=== PATIENT | female | born 1930 | race Caucasian/White ===

== ENCOUNTER 2017-03-23 16:17 | Inpatient (IN) | payer MEDICARE, BC ==
--- NOTE | ~2017-03-23 | DS ---
Discharge Summary [address] [id number] [facility] [place]. [address] NAME: KEZIA NEWELL : 32 STATUS : DIS IN PAT#: [id number] AGE: 87 ADM/REG DATE : 03/23/17 MR#: [id number] REPORT SERV DATE: 03/28/17 DICTATED BY: CIERRA MARTE DATE: 03/27/17 REPORT STATUS : Draft TRANSCRIBED BY: MODL DATE: 03/27/17 ADMISSION DATE: 03/23/2017 DISCHARGE DATE: 03/27/2017 PRINCIPAL DIAGNOSIS: Dementia with acute encephalopathy due to urinary tract infection. SECONDARY DIAGNOSES: 1. Acute kidney injury. 2. Hypovolemia. 3. Seizure disorder. 4. Generalized weakness. 5. Atrial fibrillation. HISTORY OF PRESENT ILLNESS: Please see Dr. Vilchis's dictation on 03/23/2017. HOSPITAL COURSE: Admitted with altered mental status in the setting of advanced dementia with increasing weakness and difficulty managing affairs at home. The patient was found to have urinary tract infection positive for E. coli. The patient had good results with antibiotics, which were changed to p.o. Mental status returned to baseline which was poor, she remained confused. Also, did not pass physical therapy and was transferred to [facility] facility on 03/27/2017. She will follow up with Dr. Fabiola Ho following SNF discharge. PT/OT per facility, on following medications: Prinivil 10 per day, Eliquis 2.5 b.i.d., Keppra 500 b.i.d., Cardizem CD 240 per day, Duricef for 2 more days, Exelon 4.6 daily, Synthroid 50 daily, Namenda 10 b.i.d., Lovenox for DVT prophylaxis. Greater than 30 minutes were spent in the care of this patient on discharge day. DICTATED BY: Todd Jones/EUGENIA Cierra Marte M.D. / [id number] CC: Todd Fountain DO
--- NOTE | ~2017-03-23 | HP ---
History And Physical [facility] [address] [place]. [address] NAME: KEZIA NEWELL : 32 STATUS : ADM IN [facility]#: [id number] AGE: 86 ADM/REG DATE : 03/23/17 MR#: [id number] REPORT SERV DATE: 03/23/17 DICTATED BY: KATHIE MARTIN DATE: 03/23/17 REPORT STATUS : Draft TRANSCRIBED BY: MODL DATE: 03/23/17 DATE OF ADMISSION: 03/23/2017 HISTORY OF PRESENT ILLNESS: This is a very pleasant 86-year-old female, who was brought by daughter to [facility] because of altered mental status and lethargy which was going on for several days. The patient's daughter reported that the patient was not eating, not even able to swallow her medications. She was chewing her diltiazem, so the patient was not given her medications because of this reason. As well as she had a bowel incontinence episode where she could not tell that she wants to have a bowel movement. She has advanced dementia and she became more lethargic than usually. She was found to have urinary tract infection in the emergency room, as well as she had a history of urinary infections in the past. She had two episodes recently of UTIs. She saw Dr. Fabiola Ho, and she basically takes care of her as a primary care provider. Her dementia is worsening according to the patient's daughter. The patient is lethargic, but she is able to open and close her eyes. She can barely follow commands like she can squeeze my hand. Daughter said that she used to walk with assistance, but now she is unable even to walk. PAST MEDICAL HISTORY: Her past medical history was collected from patient's daughter because the patient is unable to provide any history. She has a history of hypertension, hypothyroidism, and questionable history of arrhythmia. The patient's daughter reported that she is on Cardizem, but it is unclear why she takes it. Even Dr. Fabiola Ho, her primary care provider did not know why she is on Cardizem. She said she was seen by police patrol lieutenant one time and she was on this medication, but she is not taking this medication for the last 10 days, and heart rate is in the normal range. She was not taking Cardizem because she was unable to swallow pills. She was chewing the capsules that is why it was not given to her. The patient's daughter denies any history of heart attacks. No strokes. She said that the patient had seizures in November this year and afterwards, she had seven episodes of seizures. At that time, she was hospitalized at [facility] and at that time, they did not find any reason why the patient had seizures. She was placed on Keppra and for the last two months she did not have any seizures. As well as the patient's daughter reported that the patient had shingles, maybe like two months ago, and she was scratching it badly on her chest and on her shoulder, and now it has resolved. She does not have any active infection. Also, the patient's daughter reported that for seizures, she had a full workup at [facility] including CT scan of the head. Patient's daughter also reported that the patient has chronic kidney disease, followed by Dr. Story, and it was stage 2 to 3. PAST SURGICAL HISTORY: Includes cholecystectomy. SOCIAL HISTORY: She never smoked before. No alcohol. No recreational drug use. She now stays with her daughter. FAMILY HISTORY: Patient's father and mother when she was young, so they do not know what medical problems they had. History And Physical [address] [address] NAME: KEZIA NEWELL : 32 STATUS : ADM IN [facility]#: [id number] AGE: 86 ADM/REG DATE : 03/23/17 MR#: [id number] REPORT SERV DATE: 03/23/17 DICTATED BY: KATHIE MARTIN DATE: 03/23/17 REPORT STATUS : Draft TRANSCRIBED BY: EUGENIA DATE: 03/23/17 ALLERGIES: THE PATIENT IS INTOLERANT OF ALOE. SHE HAS ALLERGY TO ALOE. THERE ARE NO KNOWN DRUG ALLERGIES. HOME MEDICATIONS: Include: Diltiazem ER 240 mg daily, but the patient is not on it for the last 10 days. Because she was chewing medications instead of swallowing, it was discontinued. Keppra 500 mg p.o. b.i.d., levothyroxine 50 mcg daily, lisinopril 5 mg daily, Namenda 10 mg p.o. b.i.d., Exelon patch 4.6 mg p.o. daily. REVIEW OF SYSTEMS: I am unable to perform review of systems because patient is in altered mental status, unable to answer any questions. PHYSICAL EXAMINATION: GENERAL: Well-nourished and well-developed female, not in acute distress. Resting quietly. VITAL SIGNS: Her blood pressure is 138/96, temperature 98.3, heart rate 72, respiratory rate 22, oxygen saturation 93% on room air. HEENT: Head atraumatic, normocephalic. Conjunctivae clear. Pupils are equal and reactive to light and accommodation. Extraocular muscles are intact. NECK: Supple. Trachea is midline. LYMPH: No supraclavicular or cervical lymphadenopathy. LUNGS: Diminished breath sounds bilaterally. Decreased respiratory effort. CARDIOVASCULAR SYSTEM: Regular rate and rhythm. Point of maximal impulse not displaced. ABDOMEN: Soft, nontender, nondistended. Positive normoactive bowel sounds. EXTREMITIES: No clubbing, cyanosis, or edema. SKIN: Normal color. Slightly decreased turgor. NEUROLOGICAL: She is keeping her eyes closed, but she is able to open her eyes. When you talk to her, she looks at you. She can even squeeze my hand, but then closes her eyes again and then opening periodically moving her eyelids. She can follow simple commands, but she has difficulty to understand, for example when you tell her to squeeze your hand, she tries to squeeze but she does not understand. When she is able to do it, her muscle strength is 4/5 bilaterally on upper and lower extremities. LABORATORY RESULTS: Sodium 142, potassium 4, chloride 106, carbon dioxide 31, BUN 20, creatinine 1.24, blood sugar is 91. White count 10.3, hemoglobin 12.3, hematocrit 37, platelet count 364. UA showed cloudy urine with a large amount of leukocyte esterase, more than 182 white cells, with white cells clumps, and bacteria. Chest x-ray showed mild cardiomegaly, otherwise clear lungs. ASSESSMENT AND PLAN: This is an 86-year-old female with a past medical history of advanced dementia, history of frequent UTIs, history of recent onset of seizures in November. No seizures for the last two months. History of chronic kidney disease, stage 2 to 3. Presented with: 1. Decreased level of consciousness. 2. Significant urinary tract infection. 3. Mild acute kidney injury on chronic kidney disease with dehydration. 4. Advanced dementia to the point that she has difficulty to recognize family members, and History And Physical [address] [place]. [address] NAME: KEZIA NEWELL : 32 STATUS : ADM IN PAT#: [id number] AGE: 86 ADM/REG DATE : 03/23/17 MR#: [id number] REPORT SERV DATE: 03/23/17 DICTATED BY: KATHIE MARTIN DATE: 03/23/17 REPORT STATUS : Draft TRANSCRIBED BY: MODL DATE: 03/23/17 some episodes of bowel movement without notification. We will admit the patient to medical-surgical telemetry bed. We will monitor her closely. For her dehydration, since she is unable to eat anything by mouth, we will start her on IV fluid hydration. As well as for urinary tract infection, after urinary cultures are obtained, we will start her on intravenous Rocephin. For her acute kidney injury. IV fluids will be given and we will check her creatinine tomorrow. We will do an EKG and we will check serial troponins. Regarding her oral medications, we will hold oral medications until she will be able to take by mouth. I will hold her diltiazem since she is not taking for the last 10 days and her heart rate is 72. There is a possibility that diltiazem may be discontinued if heart rate will stay in a stable rhythm. Also, we will check her EKG. Regarding her Keppra that she takes for seizures, we will give her Keppra intravenously. Once she will be able to take by mouth, it can be switched through her mouth. She has had history of seizures, but she does not have seizures anymore. Decreased level of consciousness. We will monitor patient's decreased level of consciousness. With treatment of UTI, we expect her mentation and level of consciousness will improve. If is she will stay lethargic after even UTI treatment, then she may need to have a CT of the head and other investigations for the reasons of decreased level of consciousness. The patient is febrile and we will monitor her for fever also. Code status. The patient's code status was discussed with patient's daughter, and she does not want her to have CPR. She does not want intubation. She is okay with IV fluids, antibiotics and oxygen masks, so she will be limited additional interventions and these are patient's preferences according to the daughter. My partner will see this patient starting tomorrow morning. MG/MODL Kathie Martin M.D. / [id number] CC: Todd Michael DO
[2017-03-23 14:44] LABS: BASOPHILS 0.4 %; BASOPHILS ABSOLUTE 0.04 10/3/uL (0.0-0.16); EOSINOPHILS 4.9 %; ER CBC TAT 0 Hrs 03 Mins; HEMOGLOBIN 12.3 g/dL (12.0-16.0); IMMATURE GRANULOCYTES 0.7 %; IMMATURE GRANULOCYTES ABSOLUTE 0.07 10/3/uL (0.0-0.11); LYMPHOCYTES 34.7 %; LYMPHOCYTES ABSOLUTE 3.56 10/3/uL (0.67-4.30); MEAN CORPUS HGB CONC 33.2 g/dL (32.0-36.0); MEAN CORPUSCULAR HEMOGLOB 30.1 pg (26.0-34.0); MEAN PLATELET VOLUME 8.7 fL (9.2-13.0); MONOCYTES 8.9 %; MONOCYTES ABSOLUTE 0.91 10/3/uL (0.21-1.20); NEUTROPHILS 50.4 %; NEUTROPHILS ABSOLUTE 5.19 10/3/uL (2.02-8.40); RBC DISTRIBUTION WIDTH 13.4 % (12.0-16.0); RED CELL COUNT 4.08 10/6/uL (4.0-5.6); WHITE BLOOD CELLS 10.3 10/3/uL (4.5-10.5)
[2017-03-23 14:45] LABS: MANUAL DIFF NO %; MEAN CORPUSCULAR VOLUME 90.7 fL (80-100); PLATELET COUNT 364 10/3/uL (150-400)
[2017-03-23 14:53] LABS: ASCORBIC ACID (UR NOT ORDER) 20 (NEG); BILIRUBIN, URINE NEGATIVE (NEG); ER URINALYSIS TAT 0 Hrs 12 Mins; KETONE, URINE NEGATIVE (NEG); LEUKOCYTE ESTERASE(NOT OR LARGE (NEG); NITRITE (URINE) NEG (NEG); WBC (NOT ORDERED) (RFLEX) > 182 (0-5)
[2017-03-23 15:03] LABS: A/G RATIO 0.8 (0.7-1.9); ALBUMIN 3.1 G/DL (3.5-5.0); ALKALINE PHOSPHATASE 156 U/L (45-117); CALCIUM, SERUM 8.7 MG/DL (8.5-10.4); CHLORIDE, SERUM 106 MMOL/L (96-112); CREATININE 1.24 MG/DL (0.55-1.02); GFR AFRICAN AMERICAN 46 ML/MIN (>=60); GFR NON AFRICAN AMERICAN 40 ML/MIN (>=60); GLOBULIN 3.8 G/DL (2.5-4.1); GLUCOSE, SERUM 91 MG/DL (60-99); SGOT(AST) 20 U/L (5-40); SGPT(ALT) 21 U/L (5-65); TOTAL BILIRUBIN 0.4 MG/DL (0-1.2); TOTAL PROTEIN 6.9 G/DL (6.0-8.5)
[2017-03-23 15:04] LABS: BUN (BLOOD UREA NITROGEN) 20 MG/DL (6-23); CO2 (CARBON DIOXIDE) 31 MMOL/L (24-34); SODIUM, SERUM 142 MMOL/L (135-148)
[~2017-03-23 16:17] MED LIST: CARTIA XT240 MG/24 PO; DIOVAN320 MG PO; EXELON4.6T TOP; KEPPRA500 PO; LEVOTHYROXIN25 MCG PO; LEVOTHYROXIN50 MCG PO; NAMENDA10 MG PO; ZESTRIL5 MG PO
[2017-03-23 19:22] LABS: TROPONIN I <0.02 NG/ML (<0.05)
[2017-03-23 19:24] LABS: FOLATE 45.8 NG/ML (>5.2)
[2017-03-24 02:00] LABS: BASOPHILS 0.4 %; BASOPHILS ABSOLUTE 0.04 10/3/uL (0.0-0.16); EOSINOPHILS 5.6 %; EOSINOPHILS ABSOLUTE 0.63 10/3/uL (0.0-0.53); HEMATOCRIT 38.1 % (36.0-48.0); HEMOGLOBIN 12.7 g/dL (12.0-16.0); IMMATURE GRANULOCYTES 0.8 %; IMMATURE GRANULOCYTES ABSOLUTE 0.09 10/3/uL (0.0-0.11); LYMPHOCYTES 35.4 %; LYMPHOCYTES ABSOLUTE 3.95 10/3/uL (0.67-4.30); MEAN CORPUS HGB CONC 33.3 g/dL (32.0-36.0); MEAN CORPUSCULAR HEMOGLOB 30.2 pg (26.0-34.0); MEAN CORPUSCULAR VOLUME 90.5 fL (80-100); MEAN PLATELET VOLUME 8.7 fL (9.2-13.0); MONOCYTES 10.8 %; MONOCYTES ABSOLUTE 1.21 10/3/uL (0.21-1.20); NEUTROPHILS ABSOLUTE 5.24 10/3/uL (2.02-8.40); PLATELET COUNT 393 10/3/uL (150-400); RBC DISTRIBUTION WIDTH 12.9 % (12.0-16.0); RED CELL COUNT 4.21 10/6/uL (4.0-5.6); WHITE BLOOD CELLS 11.2 10/3/uL (4.5-10.5)
[2017-03-24 02:04] LABS: MANUAL DIFF NO %
[2017-03-24 02:05] LABS: BUN (BLOOD UREA NITROGEN) 18 MG/DL (6-23); CALCIUM, SERUM 8.8 MG/DL (8.5-10.4); CHLORIDE, SERUM 106 MMOL/L (96-112); CREATININE 1.06 MG/DL (0.55-1.02); GFR AFRICAN AMERICAN 55 ML/MIN (>=60); GFR NON AFRICAN AMERICAN 48 ML/MIN (>=60); GLUCOSE, SERUM 100 MG/DL (60-99); POTASSIUM, SERUM 4.1 MMOL/L (3.5-5.3); SODIUM, SERUM 142 MMOL/L (135-148); TROPONIN I <0.02 NG/ML (<0.05)
[2017-03-24 02:06] LABS: CO2 (CARBON DIOXIDE) 26 MMOL/L (24-34)
[2017-03-25 06:52] LABS: BASOPHILS 0.4 %; BASOPHILS ABSOLUTE 0.05 10/3/uL (0.0-0.16); EOSINOPHILS 3.9 %; EOSINOPHILS ABSOLUTE 0.52 10/3/uL (0.0-0.53); HEMATOCRIT 39.5 % (36.0-48.0); HEMOGLOBIN 13.1 g/dL (12.0-16.0); IMMATURE GRANULOCYTES 0.7 %; IMMATURE GRANULOCYTES ABSOLUTE 0.09 10/3/uL (0.0-0.11); LYMPHOCYTES 29.8 %; LYMPHOCYTES ABSOLUTE 3.93 10/3/uL (0.67-4.30); MANUAL DIFF NO %; MEAN CORPUS HGB CONC 33.2 g/dL (32.0-36.0); MEAN CORPUSCULAR VOLUME 90.6 fL (80-100); MEAN PLATELET VOLUME 9.1 fL (9.2-13.0); MONOCYTES 8.4 %; MONOCYTES ABSOLUTE 1.11 10/3/uL (0.21-1.20); NEUTROPHILS 56.8 %; NEUTROPHILS ABSOLUTE 7.48 10/3/uL (2.02-8.40); PLATELET COUNT 393 10/3/uL (150-400); RBC DISTRIBUTION WIDTH 12.8 % (12.0-16.0); RED CELL COUNT 4.36 10/6/uL (4.0-5.6); WHITE BLOOD CELLS 13.2 10/3/uL (4.5-10.5)
[2017-03-25 07:05] LABS: BUN (BLOOD UREA NITROGEN) 19 MG/DL (6-23); CALCIUM, SERUM 8.7 MG/DL (8.5-10.4); CHLORIDE, SERUM 108 MMOL/L (96-112); CO2 (CARBON DIOXIDE) 28 MMOL/L (24-34); CREATININE 1.09 MG/DL (0.55-1.02); GFR AFRICAN AMERICAN 54 ML/MIN (>=60); GFR NON AFRICAN AMERICAN 46 ML/MIN (>=60); GLUCOSE, SERUM 108 MG/DL (60-99); POTASSIUM, SERUM 4.3 MMOL/L (3.5-5.3); SODIUM, SERUM 141 MMOL/L (135-148)
[2017-03-26 06:33] LABS: BASOPHILS 0.2 %; BASOPHILS ABSOLUTE 0.03 10/3/uL (0.0-0.16); EOSINOPHILS 4.9 %; EOSINOPHILS ABSOLUTE 0.63 10/3/uL (0.0-0.53); HEMOGLOBIN 11.3 g/dL (12.0-16.0); IMMATURE GRANULOCYTES 0.6 %; IMMATURE GRANULOCYTES ABSOLUTE 0.08 10/3/uL (0.0-0.11); LYMPHOCYTES 30.5 %; MEAN CORPUS HGB CONC 33.5 g/dL (32.0-36.0); MEAN CORPUSCULAR HEMOGLOB 30.5 pg (26.0-34.0); MEAN CORPUSCULAR VOLUME 91.1 fL (80-100); MEAN PLATELET VOLUME 9.2 fL (9.2-13.0); MONOCYTES 9.5 %; MONOCYTES ABSOLUTE 1.21 10/3/uL (0.21-1.20); NEUTROPHILS 54.3 %; NEUTROPHILS ABSOLUTE 6.93 10/3/uL (2.02-8.40); PLATELET COUNT 357 10/3/uL (150-400); WHITE BLOOD CELLS 12.8 10/3/uL (4.5-10.5)
[2017-03-26 06:38] LABS: HEMATOCRIT 33.7 % (36.0-48.0); MANUAL DIFF NO %
== END 2017-03-27 21:18 | DRG 689 ==
LOC: ER 16:17 → 4SO 16:23
PROVIDERS: Emergency Medicine; Hospitalist; Internal Medicine
DX: N39.0 Urinary tract infection, site not specified (principal); G93.49 Other encephalopathy; N17.9 Acute kidney failure, unspecified; E86.0 Dehydration; F03.90 Unspecified dementia, unspecified severity, without behavioral disturbance, psychotic disturbance, mood disturbance, and anxiety; I48.91 Unspecified atrial fibrillation; I12.9 Hypertensive chronic kidney disease with stage 1 through stage 4 chronic kidney disease, or unspecified chronic kidney disease; E03.9 Hypothyroidism, unspecified; B96.20 Unspecified Escherichia coli [E. coli] as the cause of diseases classified elsewhere; Z66 Do not resuscitate; G40.909 Epilepsy, unspecified, not intractable, without status epilepticus; N18.3 Chronic kidney disease, stage 3 (moderate); R53.1 Weakness; E86.1 Hypovolemia; R26.9 Unspecified abnormalities of gait and mobility
CPT/HCPCS: 71010; 80048; 80053; 81001; 82140; 82607; 82746; 83735; 83880; 84145; 84443; 84484; 85025; 87077; 87086; 87186; 93005; 96374; 97110-GP; 97116-GP; 97162-GP; 99285; A9270-GY; G8978-CM-GP; G8979-CL-GP; J0360; J1953